=== PATIENT | female | born 1985 | race Caucasian/White ===

== ENCOUNTER 2018-04-25 12:08 | Observation (INO) | payer OTHER ==
[~2018-04-25 12:08] MED LIST: CEFAZOLIN 1 GM INJ; SUCCINYLCHOLINE CHLORIDE 100 MG/5 ML SYG IV
[2018-04-25] MEDS: CEFAZOLIN 2 GM/50 ML (PMX) 50 ML IVPB (15:00)
[2018-04-25] MEDS: SOD CHLORIDE 0.9% 1,000 ML IV ×2 (15:00→20:47)
[2018-04-25] MEDS ORDERED: PROPOFOL 20 ML (15:34)
[2018-04-25] MEDS ORDERED: CEFAZOLIN 1 GM INJ (15:34)
[2018-04-25] MEDS ORDERED: ROCURONIUM 50 MG INJ (15:34)
[2018-04-25] MEDS ORDERED: GLYCOPYRROLATE 0.4 MG INJ (15:34)
[2018-04-25] MEDS ORDERED: NEOSTIGMINE 3 MG/3 ML SYRINGE (15:34)
[2018-04-25] MEDS ORDERED: MIDAZOLAM 1 MG/ML 2 ML INJ (15:35)
[2018-04-25] MEDS ORDERED: DEXAMETHASONE 4 MG/ML 1 ML INJ (15:36)
[2018-04-25] MEDS ORDERED: ONDANSETRON 4 MG INJ (15:36)
[2018-04-25] MEDS ORDERED: FENTAnyl 50 MCG/ML VIAL ×2 (15:36→17:05)
[2018-04-25] MEDS ORDERED: BUPIVACAINE 0.5% (SDV) 30 ML INJ (15:41)
[2018-04-25] MEDS ORDERED: OXYCODONE/ACETAMINOPHEN (5/325) TAB PO ×2 (16:30)
[2018-04-25] MEDS ORDERED: HYDROmorphONE 1 MG/5 ML IV SYRINGE IV (16:30)
[2018-04-25] MEDS ORDERED: hydrALAzine 20 MG INJ IV (16:30)
[2018-04-25] MEDS ORDERED: FENTAnyl 50 MCG/ML VIAL IV ×3 (16:30)
[2018-04-25] MEDS ORDERED: LABETALOL HCL 20MG INJ IV (16:30)
[2018-04-25] MEDS ORDERED: ALBUTEROL 0.083% (NEB) 2.5 MG/3 ML AMP HHN (16:30)
[2018-04-25] MEDS ORDERED: MIDAZOLAM 1 MG/ML 2 ML INJ IV (16:30)
[2018-04-25] MEDS ORDERED: EPHEDrine SULFATE 50 MG/5 ML SYG IV (16:30)
[2018-04-25] MEDS ORDERED: TRIMETHOBENZAMIDE 100 MG/ML VIAL IM (16:30)
[2018-04-25] MEDS ORDERED: IPRATROPIUM (NEB) 0.5 MG/2.5 ML AMP HHN (16:30)
[2018-04-25] MEDS ORDERED: SUGAMMADEX SODIUM 200 MG/2 ML VIAL IV (17:20)
[2018-04-25] MEDS ORDERED: morphine 2 MG INJ IV (17:30)
[2018-04-25] MEDS: MEPERIDINE 25 MG INJ IV (17:43)
[2018-04-25] MEDS: ONDANSETRON 4 MG INJ IV (17:43)
[2018-04-25] MEDS: HYDROmorphONE 1 MG/5 ML IV SYRINGE IV ×2 (17:43→17:51)
[2018-04-25] MEDS: DIPHENHYDRAMINE 50 MG INJ IV (17:59)
[2018-04-25 18:21] LABS: ADD MAN DIFF? NO
[2018-04-25 18:37] LABS: WHITE BLOOD COUNT 12.6 10^3/ul (4.8-10.8)
[2018-04-25 18:37] LABS: BASOPHILS % 0.3 % (0.0-2.0); EOSINOPHILS # 0.1 10^3/ul (0.0-0.5); EOSINOPHILS % 0.5 % (0.0-7.0); HEMATOCRIT 32.2 % (37.0-47.0); HEMOGLOBIN 9.4 g/dl (12.0-16.0); LYMPHOCYTES # 2.2 10^3/ul (0.8-2.9); LYMPHOCYTES % 17.2 % (15.0-51.0); MEAN CORPUSCULAR HEMOGLOBIN 22.2 pg (29.0-33.0); MEAN CORPUSCULAR HGB CONC 29.2 g/dl (32.0-37.0); MEAN CORPUSCULAR VOLUME 76.1 fl (82.0-101.0); MEAN PLATELET VOLUME 10.2 fl (7.4-10.4); MONOCYTE # 0.5 10^3/ul (0.3-0.9); MONOCYTES % 4.3 % (0.0-11.0); NEUTROPHIL # 9.6 10^3/ul (1.6-7.5); NEUTROPHILS % 76.3 % (39.0-77.0); PLATELET COUNT 209 10^3/UL (140-415); RED BLOOD COUNT 4.23 10^6/ul (4.20-5.40); RED CELL DISTRIBUTION WIDTH 18.6 % (11.5-14.5)
[2018-04-25 18:39] LABS: HOLD TRANSMISSIONS 1
[2018-04-25 19:02] LABS: ALANINE AMINOTRANSFERASE 57 IU/L (13-69); ALBUMIN 3.4 g/dl (3.3-4.9); ALKALINE PHOSPHATASE 47 IU/L (42-121); ANION GAP 11 (8-16); ASPARTATE AMINO TRANSFERASE 56 IU/L (15-46); BILIRUBIN,INDIRECT 0.1 mg/dl (0-1.1); BILIRUBIN,TOTAL 0.1 mg/dl (0.2-1.3); BLOOD UREA NITROGEN 14 mg/dl (7-20); CALCIUM 8.4 mg/dl (8.4-10.2); CARBON DIOXIDE 22 mmol/L (21-31); CHLORIDE 112 mmol/L (97-110); CREATININE 0.75 mg/dl (0.44-1.00); GLUCOSE 142 mg/dl (70-220); POTASSIUM 3.7 mmol/L (3.5-5.1); SODIUM 141 mmol/L (135-144); TOTAL PROTEIN 6.8 g/dl (6.1-8.1)
[2018-04-25] MEDS: HYDROCODONE/APAP (5/325) TAB PO (20:47)
[2018-04-25] MEDS ORDERED: GLUCOSE GEL 15 GRAM TUBE PO ×2 (22:30)
[2018-04-25] MEDS ORDERED: GLUCOSE GEL 15 GRAM TUBE BUCCAL (22:30)
[2018-04-25] MEDS ORDERED: GLUCAGON 1 MG INJ IM (22:30)
[2018-04-25] MEDS ORDERED: DEXTROSE 50% 50 ML SYRINGE IV ×2 (22:30)
[2018-04-25] MEDS: INSULIN ASPART [NOVOLOG] 3 ML PEN SC (22:33)
[2018-04-25] MEDS: ATORVASTATIN 10 MG TAB PO (22:46)
[2018-04-26] MEDS: CEFAZOLIN 2 GM/50 ML (PMX) 50 ML IVPB ×3 (01:05→08:53)
[2018-04-26] MEDS: HYDROCODONE/APAP (5/325) TAB PO (03:55)
[2018-04-26 06:55] LABS: ADD MAN DIFF? NO
[2018-04-26 06:56] LABS: BASOPHILS % 0.1 % (0.0-2.0); HEMATOCRIT 34.1 % (37.0-47.0); HEMOGLOBIN 9.9 g/dl (12.0-16.0); LYMPHOCYTES # 0.7 10^3/ul (0.8-2.9); LYMPHOCYTES % 5.1 % (15.0-51.0); MEAN CORPUSCULAR VOLUME 75.8 fl (82.0-101.0); MEAN PLATELET VOLUME 10.8 fl (7.4-10.4); MONOCYTE # 0.3 10^3/ul (0.3-0.9); MONOCYTES % 2.2 % (0.0-11.0); NEUTROPHIL # 13.2 10^3/ul (1.6-7.5); NEUTROPHILS % 92.2 % (39.0-77.0); PLATELET COUNT 250 10^3/UL (140-415); RED CELL DISTRIBUTION WIDTH 18.7 % (11.5-14.5)
[2018-04-26 06:56] LABS: WHITE BLOOD COUNT 14.3 10^3/ul (4.8-10.8)
[2018-04-26] MEDS: SOD CHLORIDE 0.9% 1,000 ML IV ×2 (07:00→13:24)
[2018-04-26 07:24] LABS: ALANINE AMINOTRANSFERASE 67 IU/L (13-69); ALBUMIN 3.8 g/dl (3.3-4.9); ALBUMIN/GLOBULIN RATIO 1.05; ALKALINE PHOSPHATASE 50 IU/L (42-121); ANION GAP 13 (8-16); ASPARTATE AMINO TRANSFERASE 73 IU/L (15-46); BILIRUBIN,INDIRECT 0.2 mg/dl (0-1.1); BILIRUBIN,TOTAL 0.2 mg/dl (0.2-1.3); BLOOD UREA NITROGEN 12 mg/dl (7-20); CALCIUM 8.6 mg/dl (8.4-10.2); CARBON DIOXIDE 24 mmol/L (21-31); CHLORIDE 105 mmol/L (97-110); CREATININE 0.77 mg/dl (0.44-1.00); GLUCOSE 178 mg/dl (70-220); POTASSIUM 4.3 mmol/L (3.5-5.1); SODIUM 138 mmol/L (135-144); TOTAL PROTEIN 7.4 g/dl (6.1-8.1)
[2018-04-26] MEDS: INSULIN ASPART [NOVOLOG] 3 ML PEN SC ×2 (07:55→12:01)
[2018-04-26] MEDS: metFORMIN 500 MG TAB PO (07:56)
[2018-04-26] MEDS: BENAZEPRIL 20 MG TAB PO (08:38)
== END 2018-04-26 15:23 | disposition home or self-care (01) ==
LOC: SDS 12:08 → REC 18:08 → PP2 20:20
PROVIDERS: Surgery
DX: K80.10 Calculus of gallbladder with chronic cholecystitis without obstruction (principal); E66.9 Obesity, unspecified; Z68.41 Body mass index [BMI] 40.0-44.9, adult; E11.9 Type 2 diabetes mellitus without complications; Z79.84 Long term (current) use of oral hypoglycemic drugs; E78.5 Hyperlipidemia, unspecified; I10 Essential (primary) hypertension
CPT/HCPCS: 47562; 80053; 82962; 85025; 88304; 99217